=== PATIENT | male | born 1965 | race Caucasian/White ===

== ENCOUNTER 2020-04-04 08:00 | Inpatient (IN) ==
[~2020-04-04 08:00] MED LIST: ALVIMOPAN 12 MG CAPSULE ONE; ALVIMOPAN 12 MG CAPSULE PO ONE; ERTAPENEM 1,000 MG VIAL ONE; ERTAPENEM 1,000 MG in SODIUM CHLORIDE 0.9% 100 ML IV ONE
[2020-04-04] MEDS ORDERED: DIAZEPAM 5 MG TABLET PO ONE (08:40)
[2020-04-04] MEDS ORDERED: FAMOTIDINE 20 MG TABLET PO ONE (08:40)
[2020-04-04] MEDS ORDERED: ACETAMINOPHEN 500 MG TABLET PO ONE (08:44)
[2020-04-04] MEDS ORDERED: GABAPENTIN 400 MG CAPSULE PO ONE (08:44)
[2020-04-04] MEDS ORDERED: LACTATED RINGERS 1,000 ML IV SCH (08:45)
[2020-04-04] MEDS ORDERED: ACETAMINOPHEN 500 MG TABLET ONE (08:55)
[2020-04-04] MEDS ORDERED: FAMOTIDINE 20 MG TABLET ONE (08:55)
[2020-04-04] MEDS ORDERED: DIAZEPAM 5 MG TABLET ONE (08:55)
[2020-04-04] MEDS ORDERED: GABAPENTIN 400 MG CAPSULE ONE (08:55)
[2020-04-04] MEDS ORDERED: INDOCYANINE GREEN 25 MG VIAL IV ONE (09:35)
[2020-04-04] MEDS ORDERED: DEXAMETHASONE 4 MG/1 ML VIAL ONE ×2 (09:39→14:22)
[2020-04-04] MEDS ORDERED: ROPIVACAINE 0.5% 30 ML VIAL ONE (09:39)
[2020-04-04] MEDS ORDERED: TISSUE ADHESIVE 1 EACH APPLICATOR TOP ONE (12:34)
[2020-04-04] MEDS ORDERED: ONDANSETRON 4 MG/2 ML VIAL IV PRN (14:05)
[2020-04-04] MEDS ORDERED: SEVOFLURANE 1 UNIT/15 MINUTE INH ONE (14:21)
[2020-04-04] MEDS ORDERED: LIDOCAINE 2% 5 ML VIAL ONE (14:21)
[2020-04-04] MEDS ORDERED: propofoL 200 MG/20 ML VIAL IV ONE (14:21)
[2020-04-04] MEDS ORDERED: fentaNYL 100 MCG/2 ML VIAL ONE (14:22)
[2020-04-04] MEDS ORDERED: GLYCOPYRROLATE 0.4 MG/2 ML VIAL ONE (14:22)
[2020-04-04] MEDS ORDERED: MIDAZOLAM 2 MG/2 ML VIAL ONE (14:22)
[2020-04-04] MEDS ORDERED: ROCURONIUM 100 MG/10 ML VIAL IV ONE (14:23)
[2020-04-04] MEDS ORDERED: NEOSTIGMINE 10 MG/10 ML VIAL ONE (14:23)
[2020-04-04] MEDS ORDERED: PHENYLEPHRINE 1 MG/10 ML SYRINGE IV ONE (14:23)
[2020-04-04] MEDS ORDERED: LACTATED RINGERS 2,000 ML IV ONE (14:23)
[2020-04-04] MEDS ORDERED: DEXTROSE 5% LACTATED RINGERS 1,000 ML IV SCH (14:30)
[2020-04-04 15:26] LABS: Hematocrit 44.9 VOL% (42.0-52.0); Hemoglobin 14.4 GM/DL (14.0-18.0)
[2020-04-04] MEDS: MORPHINE 4 MG/1 ML VIAL IV PRN ×3 (15:33→20:34)
[2020-04-04] MEDS ORDERED: SODIUM CHLORIDE 0.9% 50 ML IV ONE (17:58)
[2020-04-04] MEDS: cefOXitin 2,000 MG in SYRINGE 1 EACH IV SCH ×2 (18:03→23:28)
[2020-04-04] MEDS ORDERED: KETOROLAC 30 MG/1 ML VIAL IV ONE (22:23)
[2020-04-04 22:34] LABS: Hematocrit 41.4 VOL% (42.0-52.0); Hemoglobin 13.7 GM/DL (14.0-18.0)
[2020-04-05] MEDS: KETOROLAC 15 MG/1 ML VIAL IV SCH ×3 (05:03→16:30)
[2020-04-05] MEDS: cefOXitin 2,000 MG in SYRINGE 1 EACH IV SCH (05:09)
[2020-04-05 07:19] LABS: Basophils % 0.1 % (0.0-0.8); Hematocrit 40.5 VOL% (42.0-52.0); Hemoglobin 13.2 GM/DL (14.0-18.0); Immature Granulocytes % 0.4 %; Immature Granulocytes Absolute 0.06 #; Lymphocytes # 0.7 10*3/uL (1.4-4.0); Lymphocytes % 4.9 % (21.2-54.2); Mean Corpuscular HGB Conc 32.6 GM/DL (32-36); Mean Corpuscular Volume 96.9 FL (87-102); Monocytes % 5.8 % (1.7-12.7); Neutrophils % 88.8 % (38.7-73.9); Platelet Count 160 T/CUMM (130-400); Red Blood Count 4.18 MC/CUMM (3.8-5.5); Red Cell Distribution Width 13.6 % (9.3-17.3); White Blood Count 14.9 T/CUMM (4-12)
[2020-04-05 07:33] LABS: Calcium 8.5 MG/DL (8.5-10.1); Osmolality,Calculated 274.7 MOS/KG (273-304)
[2020-04-05 07:42] LABS: Band Neutrophils 1 % (0-10); Hypochromasia 1+; Lymphocytes 4 % (20-55); Segmented Neutrophils 90 % (50-85); Total Cells Counted 100
[2020-04-05 07:43] LABS: Platelet Estimate Adequate
[2020-04-05] MEDS: ENOXAPARIN 40 MG/0.4 ML SYRINGE SUBCUT SCH (10:26)
[2020-04-06] MEDS: KETOROLAC 15 MG/1 ML VIAL IV SCH (03:38)
[2020-04-06 06:57] LABS: Basophils % 0.4 % (0.0-0.8); Eosinophils # 0.1 10*3/uL (0.0-0.87); Hematocrit 41.5 VOL% (42.0-52.0); Hemoglobin 13.3 GM/DL (14.0-18.0); Immature Granulocytes % 0.3 %; Immature Granulocytes Absolute 0.02 #; Lymphocytes # 1.6 10*3/uL (1.4-4.0); Lymphocytes % 22.5 % (21.2-54.2); Mean Corpuscular Volume 97.9 FL (87-102); Mean Platelet Volume 10.7 FL (9.6-12.0); Monocytes % 7.8 % (1.7-12.7); Platelet Count 135 T/CUMM (130-400); Red Blood Count 4.24 MC/CUMM (3.8-5.5); Red Cell Distribution Width 14.1 % (9.3-17.3); White Blood Count 7.1 T/CUMM (4-12)
[2020-04-06 07:08] LABS: Calcium 8.9 MG/DL (8.5-10.1); Osmolality,Calculated 272.7 MOS/KG (273-304)
[2020-04-06 07:13] VITALS: BP 113/67
[2020-04-06 07:13] LABS: Hypochromasia 1+
[2020-04-06] MEDS: ENOXAPARIN 40 MG/0.4 ML SYRINGE SUBCUT SCH (09:45)
== END 2020-04-06 09:15 | disposition home or self-care (01) | DRG 331 ==
LOC: N.OR 08:00 → N.SDSINP 08:03 → N.OB 14:59
PROVIDERS: ADMIT Surgery; ATTEND Surgery